=== PATIENT | male | born 1975 | race Caucasian/White ===

== ENCOUNTER 2021-02-21 23:35 | Emergency (ER) | payer BC, OTHER, SELFPAY ==
[2021-02-22] MEDS ORDERED: TETANUS/DIPHTHERIA TOXOID [ADULT] 0.5 ML VIAL IM ONE (00:03)
[2021-02-22] MEDS ORDERED: CLINDAMYCIN HCL 150 MG CAP ONE (00:12)
[2021-02-22] MEDS ORDERED: LIDOCAINE HCL 1% 20 ML VIAL ONE (00:36)
== END 2021-02-22 01:02 | disposition home or self-care (01) ==
LOC: EDH 23:35
DX: S91.311A Laceration without foreign body, right foot, initial encounter (principal); Z88.6 Allergy status to analgesic agent; W22.8XXA Striking against or struck by other objects, initial encounter; Y93.89 Activity, other specified; Y92.89 Other specified places as the place of occurrence of the external cause; Y99.8 Other external cause status
CPT/HCPCS: 12001; 90471; 90714